=== PATIENT | male | born 1930 | race Caucasian/White ===

== ENCOUNTER 2017-05-25 17:03 | Emergency (ER) | payer OTHER ==
[~2017-05-25] VITALS: Ht 175.3 cm; Wt 70.8 kg
[2017-05-25] MEDS ORDERED: PRAVACHOL40 MG PO (17:10)
[2017-05-25] MEDS ORDERED: TOPAMAX 25 MG T25 M1 PO (17:25)
[2017-05-25] MEDS ORDERED: LISINOPRIL5 MG PO (17:25)
[2017-05-25] MEDS ORDERED: AUGMENTIN 875875 MG PO ×2 (17:26→17:49)
[2017-05-25 17:55] VITALS: BP 172/86
== END 2017-05-25 17:56 | disposition home or self-care (01) ==
LOC: ER 17:03
DX: S61.452A Open bite of left hand, initial encounter (principal); I25.2 Old myocardial infarction; Z95.0 Presence of cardiac pacemaker; F10.99 Alcohol use, unspecified with unspecified alcohol-induced disorder; W55.01XA Bitten by cat, initial encounter; Y93.89 Activity, other specified; Y92.89 Other specified places as the place of occurrence of the external cause; Y99.8 Other external cause status

== ENCOUNTER → 2017-06-16 | Outpatient (CLI) | payer OTHER ==
[~2017-06-16] MED LIST: AUGMENTIN 875875 MG PO; LISINOPRIL5 MG PO; PRAVACHOL40 MG PO; TOPAMAX 25 MG T25 M1 PO
== END ==
LOC: SLEEPLAB 14:14
DX: G47.33 Obstructive sleep apnea (adult) (pediatric) (principal)

== ENCOUNTER → 2017-10-07 | Outpatient (CLI) | payer OTHER ==
[~2017-10-07] MED LIST changes: +ASPIR 8181 M1 PO; +TOPROL XL25 MG PO; +VOLTAREN GEL 1100 G2 TOP
[2017-10-07 13:30] LABS: ALBUMIN 3.5 g/dL (3.4-5.0); CREATININE 1.3 mg/dL (0.7-1.3); MAGNESIUM 2.2 mg/dL (1.8-2.4); POTASSIUM 4.7 mmol/L (3.5-5.1); TOTAL BILIRUBIN 0.4 mg/dL (<0.1-1.0); TOTAL PROTEIN 6.8 g/dL (6.4-8.2)
== END ==
LOC: SEN 10:41
PROVIDERS: Registered Nurse
DX: Z09 Encounter for follow-up examination after completed treatment for conditions other than malignant neoplasm (principal)

== ENCOUNTER 2018-04-02 08:51 | Emergency (ER) | payer OTHER ==
[~2018-04-02] VITALS: Ht 175.3 cm; Wt 69.0 kg
[~2018-04-02 08:51] MED LIST changes: -ASPIR 8181 M1 PO; -TOPROL XL25 MG PO; -VOLTAREN GEL 1100 G2 TOP
[2018-04-02] MEDS ORDERED: TOPROL XL25 MG PO (09:00)
[2018-04-02] MEDS ORDERED: ASPIR 8181 M1 PO (09:01)
[2018-04-02] MEDS ORDERED: VOLTAREN GEL 1100 G2 TOP (10:38)
[2018-04-02 10:40] VITALS: BP 157/70
== END 2018-04-02 10:45 | disposition home or self-care (01) ==
LOC: ER 08:51
DX: S70.01XA Contusion of right hip, initial encounter (principal); I25.2 Old myocardial infarction; Z95.0 Presence of cardiac pacemaker; W19.XXXA Unspecified fall, initial encounter; Y93.89 Activity, other specified; Y92.89 Other specified places as the place of occurrence of the external cause; Y99.8 Other external cause status

== ENCOUNTER 2018-04-26 12:17 | Emergency (ER) | payer OTHER ==
[~2018-04-26] VITALS: Ht 175.3 cm; Wt 70.8 kg
[~2018-04-26 12:17] MED LIST changes: +ASPIR 8181 M1 PO; +TOPROL XL25 MG PO; +VOLTAREN GEL 1100 G2 TOP
[2018-04-26 14:06] VITALS: BP 160/75
== END 2018-04-26 14:07 | disposition home or self-care (01) ==
LOC: ER 12:17
DX: S00.83XA Contusion of other part of head, initial encounter (principal); M25.512 Pain in left shoulder; M54.2 Cervicalgia; Z95.0 Presence of cardiac pacemaker; Z95.5 Presence of coronary angioplasty implant and graft; W18.39XA Other fall on same level, initial encounter; Y93.89 Activity, other specified; Y92.89 Other specified places as the place of occurrence of the external cause; Y99.8 Other external cause status

== ENCOUNTER 2019-11-10 19:07 | Emergency (ER) | payer OTHER ==
[~2019-11-10] VITALS: Ht 175.3 cm; Wt 79.4 kg
--- NOTE | ~2019-11-10 | EKG ---
[facility] [place] [address] ELECTROCARDIOGRAM REPORT Name: MONROE ROSE Room #: PRE M.R.#: [id number] Admission: Attend Phys: Discharge: Date of : 31 Report #: [id number] THIS REPORT FOR: cc: Wolf Sanabria Kevin E. DO Epiphany, Epiphany MD ~ THIS REPORT FOR: //name// [facility] ED Test Date: 2019-11-10 Test Time: 19:12:15 Pat Name: MONROE ROSE Department: Room: Gender: M Faculty Head: yolette : 1930 Requested By: Barber Barboza Order Number: [id number] MD: Measurements Intervals Thornton Rate: 95 P: -29 WV: 54 QRS: 20 QRSD: 90 T: 37 QT: 356 QTc: 448 Interpretive Statements Sinus rhythm Short WV interval No previous ECG available for comparison [email or web address] By: 11 11 Lou Blake MD /EPI
[2019-11-10 19:33] LABS: ABSOLUTE NEUTROPHILS 11.2 thou/uL (1.4-8.2); BASOPHILS 0.1 % (0.0-2.0); EOSINOPHILS 0.4 % (0.0-3.0); HEMATOCRIT 44.3 % (42.0-52.0); HEMOGLOBIN 14.5 gm/dL (14.0-18.0); LYMPHOCYTES 2.9 % (24.0-44.0); MCH 30.8 pg (26.0-34.0); MCHC 32.7 g/dL (28.0-37.0); MCV 94.2 fL (80.0-100.0); MONOCYTES 7.6 % (1.0-8.0); PLATELET COUNT 170 thou/uL (150-400); RBC 4.71 mil/uL (4.50-6.00); RDW 13.3 % (10.5-14.5); WBC 12.6 thou/uL (4.0-11.0)
[2019-11-10 19:50] LABS: ANION GAP 14 mmol/L (7-16); BUN 19 mg/dL (7-18); CALCIUM 8.4 mg/dL (8.5-10.1); CHLORIDE 98 mmol/L (98-107); CO2 22 mmol/L (21-32); CREATININE 1.3 mg/dL (0.7-1.3); GLUCOSE 182 mg/dL (74-106); POTASSIUM 3.7 mmol/L (3.5-5.1); SODIUM 134 mmol/L (136-145)
[2019-11-10 20:06] LABS: ALBUMIN 3.5 g/dL (3.4-5.0); MAGNESIUM 1.6 mg/dL (1.8-2.4); SGOT 21 U/L (15-37); SGPT 27 U/L (30-65); TOTAL BILIRUBIN 1.9 mg/dL (<0.1-1.0); TOTAL PROTEIN 7.4 g/dL (6.4-8.2); TROPONIN-I <0.06 ng/mL (<0.06)
[2019-11-10] MEDS ORDERED: MAG-OXIDE400 MG PO (20:41)
[2019-11-10 22:23] LABS: URINE BILIRUBIN 1+ (Negative); URINE BLOOD 2+ (Negative); URINE CLARITY CLEAR; URINE COLOR YELLOW; URINE GLUCOSE-RANDOM* NEGATIVE (Negative); URINE KETONES 3+ (Negative); URINE NITRITE-REFLEX NEGATIVE (Negative); URINE PROTEIN (DIPSTICK) 1+ (Negative); URINE SPECIFIC GRAVITY >= 1.030 (1.005-1.035)
[2019-11-10 22:30] LABS: ICTOTEST (BILI CONFIRMATORY) Positive (Negative); URINE LEUKOCYTES-REFLEX 1+ (Negative)
[2019-11-10 22:41] LABS: SQUAMOUS 0-3 Few /LPF (0-3)
[2019-11-10 22:42] LABS: CASTS None Seen /LPF (None Seen); MUCUS 0-3 Light strn/LPF (None Seen)
[2019-11-10 22:43] LABS: BACTERIA-REFLEX 1-9 Few /HPF (None Seen); CRYSTALS None Seen /LPF (None Seen); URINE RBC 3-10 Few /HPF (0-2); URINE WBC-REFLEX >25 Many /HPF (0-5)
[2019-11-10] MEDS ORDERED: KEFLEX500 M1 PO (23:01)
[2019-11-11 00:08] VITALS: BP 157/71
== END 2019-11-11 00:10 | disposition home or self-care (01) ==
LOC: ER 19:07
PROVIDERS: Emergency Medicine
DX: N39.0 Urinary tract infection, site not specified (principal); E86.0 Dehydration; E83.42 Hypomagnesemia; R19.7 Diarrhea, unspecified; R74.8 Abnormal levels of other serum enzymes; R73.9 Hyperglycemia, unspecified; Z95.5 Presence of coronary angioplasty implant and graft; Z95.0 Presence of cardiac pacemaker

== ENCOUNTER 2020-07-19 19:31 | Inpatient (IN) | payer OTHER ==
[~2020-07-19] VITALS: Ht 177.8 cm; Wt 78.2 kg
--- NOTE | ~2020-07-19 | HC ---
[facility] [address] [address] CONSULTATION Name: MONROE ROSE Room #: 217-[facility] IN M.R.#: [id number] Admission: 07/19/20 Attend Phys: Savannah Pinto MD Discharge: Date of : 31 Report #: [id number] THIS REPORT FOR: cc: [facility] - Clinic physician unknown [facility] - Clinic physician unknown Rc De MD ~ DATE OF SERVICE: 07/21/2020 HISTORY OF PRESENT ILLNESS: The patient is an 89-year-old white male who was admitted with mental status changes, word finding difficulty. He was noted to have a right facial droop. He was diagnosed with a TIA. He was seen by Neurology and had an MRI that was ordered. This has since been cancelled. We are seeing him in rehabilitation medicine consultation. PAST MEDICAL HISTORY: His prior medical history includes hypertension, hyperlipidemia, WI, coronary artery disease with stenting, obstructive sleep apnea, urinary tract infection. MEDICATIONS: Please see the full medication listing. ALLERGIES: No known drug allergies. HABITS: A 29-thub-vaot history. Same day smoker. SOCIAL HISTORY: Noted to be independent with mobility was driving, lives with his daughter in a house, 12 steps in. REVIEW OF SYSTEMS: No current complaints of chest pain, shortness of breath or abdominal discomfort. PHYSICAL EXAMINATION: GENERAL: An 89-year-old white male in no obvious distress. VITAL SIGNS: Last recorded temperature 97, pulse 70, respirations 18, blood pressure 119/60. NEUROLOGIC: He is alert. He was unable to tell me the name of the hospital. He could follow basic 1-step commands, was pleasant, appeared to have some difficulty with word finding. He has a depressed right nasolabial fold with a slight right facial droop. EOMs appeared to be full. No obvious visual field neglect to confrontation. EXTREMITIES: Functional range of motion of both upper and lower extremities. Strength is a grade 4 to 4+/5. DTRs are trace to 1. He is standby assistance sit to stand and is ambulating functional distances. He went up to 12 steps in physical therapy with standby assistance. Physical therapy has actually discharged him. ASSESSMENT: An 89-year-old white male with the following problem list: [address] [address] CONSULTATION Name: MONROE ROSE Room #: 217-P [facility] IN .R.#: [id number] Admission: 07/19/20 Attend Phys: Savannah Pinto MD Discharge: Date of : 31 Report #: [id number] 1. Transient ischemic attack versus stroke. 2. Hypertension. 3. Hyperlipidemia. 4. Obstructive sleep apnea. 5. Coronary artery disease. PLAN: Agree with speech therapy involvement regarding cognitive evaluation. He ambulates quite well and physical therapy has actually discharged him. I do not see that he would have the functional deficits to warrant an acute in-hospital inpatient rehabilitation stay. Note that workup is continuing with some increased assistance depending upon him. Thank you for asking us to assist in this patient's care. By: 1040 0024 Rc De MD /KATHYA
[~2020-07-19 19:31] MED LIST changes: +KEFLEX500 M1 PO; +MAG-OXIDE400 MG PO
[2020-07-19 19:45] VITALS: BP 180/72
[2020-07-19 20:16] LABS: HEMATOCRIT 41.2 % (42.0-52.0); HEMOGLOBIN 14.1 gm/dL (14.0-18.0); MCH 31.6 pg (26.0-34.0); MCHC 34.3 g/dL (28.0-37.0); MCV 92.1 fL (80.0-100.0); PLATELET COUNT 188 thou/uL (150-400); RBC 4.47 mil/uL (4.50-6.00); RDW 13.2 % (10.5-14.5); WBC 4.3 thou/uL (4.0-11.0)
[2020-07-19 20:24] LABS: ANION GAP 7 mmol/L (7-16); BUN 19 mg/dL (7-18); CALCIUM 8.5 mg/dL (8.5-10.1); CHLORIDE 108 mmol/L (98-107); CO2 29 mmol/L (21-32); CREATININE 1.1 mg/dL (0.7-1.3); GLUCOSE 122 mg/dL (74-106); POTASSIUM 4.1 mmol/L (3.5-5.1); SODIUM 144 mmol/L (136-145)
[2020-07-19 20:29] LABS: APTT 27.8 Seconds (24.5-32.8); INR 1.1
[2020-07-19 20:34] LABS: ALBUMIN 3.6 g/dL (3.4-5.0); SGOT 12 U/L (15-37); SGPT 16 U/L (30-65); TOTAL BILIRUBIN 0.4 mg/dL (0.2-1.0); TROPONIN-I <0.06 ng/mL (<0.06)
[2020-07-19 20:37] LABS: URINE BILIRUBIN NEGATIVE (Negative); URINE BLOOD NEGATIVE (Negative); URINE CLARITY CLEAR; URINE COLOR YELLOW; URINE GLUCOSE-RANDOM* NEGATIVE (Negative); URINE KETONES NEGATIVE (Negative); URINE LEUKOCYTES-REFLEX NEGATIVE (Negative); URINE NITRITE-REFLEX NEGATIVE (Negative); URINE PROTEIN (DIPSTICK) NEGATIVE (Negative); URINE SPECIFIC GRAVITY 1.025 (1.005-1.035); URINE UROBILINOGEN 0.2 E.U./dl (0.2-1.0)
[2020-07-19 20:44] LABS: ABSOLUTE NEUTROPHILS 2.9 thou/uL (1.4-8.2)
[2020-07-19 21:46] LABS: CHOLESTEROL 167 mg/dL (<200); HDL CHOLESTEROL 31 mg/dL (>40); LDL CHOLESTEROL 99 mg/dL (<100); TC:HDL 5.4 Ratio (Not establshd); TRIGLYCERIDE 186 mg/dL (<150); VLDL 37 mg/dL (<40)
[2020-07-19 21:53] LABS: SERUM ASSESSMENT Clear
[2020-07-19 22:12] VITALS: BP 159/91
[2020-07-19 23:16] VITALS: BP 159/91
[2020-07-19 23:48] VITALS: BP 185/88
[2020-07-20] VITALS: BP 153/69
[2020-07-20 04:36] LABS: HEMATOCRIT 40.9 % (42.0-52.0); HEMOGLOBIN 13.9 gm/dL (14.0-18.0); MCH 31.6 pg (26.0-34.0); MCHC 33.9 g/dL (28.0-37.0); RBC 4.39 mil/uL (4.50-6.00); RDW 13.5 % (10.5-14.5); WBC 5.1 thou/uL (4.0-11.0)
[2020-07-20 04:51] LABS: CALCIUM 8.6 mg/dL (8.5-10.1); CREATININE 0.9 mg/dL (0.7-1.3); MAGNESIUM 1.8 mg/dL (1.8-2.4); POTASSIUM 3.5 mmol/L (3.5-5.1)
[2020-07-20 05:00] VITALS: BP 150/73
--- NOTE | 2020-07-20 07:26 | NUR ---
admit pt alert and oriented to self, place and situation knows he's here because he woke up from a nap with weakness and trouble speaking. Does have some periods of confusion pulled his saline lock out replaced in left hand wrapped with kerlix right facial droop and slurred speech resolving, up with sba voiding qs, Aneesh RN performed nih scale per supervisors direction and is waiting on swallow eval denies pain skin, c/d/i some brusing noted. continue to monitor
[2020-07-20 08:35] VITALS: BP 166/64
[2020-07-20 12:45] VITALS: BP 138/66
--- NOTE | 2020-07-20 15:57 | NUR ---
ASSESSMENT CHARTED. PT ALERT AND ORIENTED. VSS. DENIED HAVING PAIN OR DISCOMFORT. NIH SCORE A ZERO. NEW ORDERS NOTED. NO CONCERNS AT THIS TIME.
[2020-07-20 16:20] VITALS: BP 131/50
[2020-07-20 20:48] VITALS: BP 156/57
[2020-07-21] VITALS (7 sets, daily range): BP systolic 98–146; BP diastolic 54–77
--- NOTE | 2020-07-21 01:40 | NUR ---
pt keeps setting bed alarm off and trying to get out of bed, needed frequent reorientation, vss, no c/o pain, NIH AT 3,con't L facial droop, aphasia, plan ST, PT, OT, EVAL AND TX AND MRI/MRA, US OF CAROTIDS AND ECHO SCHEDULED FOR AM, will con't to monitor per ppoc.
[2020-07-21 03:05] LABS: GLYCOHEMOGLOBIN (HGB A1C) 6.1 % (4.8-5.6)
--- NOTE | 2020-07-21 07:41 | EKG ---
[facility] [place] [address] ELECTROCARDIOGRAM REPORT Name: MONROE ROSE Room #: 217-P ADM IN M.R.#: [id number] Admission: 07/19/20 Attend Phys: Savannah Pinto MD Discharge: Date of : 31 Report #: [id number] THIS REPORT FOR: cc: [facility] - Clinic physician unknown [facility] - Clinic physician unknown Louie Gibbs MD [facility] ~ THIS REPORT FOR: //name// [facility] ED Test Date: 2020-07-19 Test Time: 20:12:44 Pat Name: MONROE ROSE Department: Room: [facility] Gender: M Icu Tech[facility] : 1930 Requested By: Munir Jameson Order Number: [id number] MD: Louie Gibbs Measurements Intervals Republic Rate: 60 P: 33 CO: 252 QRS: 35 QRSD: 100 T: 37 QT: 437 QTc: 437 Interpretive Statements Sinus rhythm Prolonged CO interval RSR' in V1 or V2, right VCD Compared to ECG 11/10/2019 19:12:15 No significant change was found Electronically Signed On 07-21-2020 7:40:54 CDT by Louie Gibbs [email or web address] <ELECTRONICALLY SIGNED> By: Louie Gibbs MD, FACC 07/21/20 0740 11 11 Louie Gibbs MD, [facility] /EPI
--- NOTE | 2020-07-21 19:44 | NUR ---
ASSUMED CARE AT SHIFT CHANGE, STORMLEY CONFUSED, VSS AND POSITIVE FOR ORTHOSTATIC BP. NIH SCORE 1-3. DENIES ANY DISCOMFORT AND WILL CONTINUE WITH POC.
[2020-07-22 04:45] VITALS: BP 1164/72
--- NOTE | 2020-07-22 05:11 | NUR ---
ASSESSMENTS CHARTED, MEDS CHARTED GIVEN. PATIENT STILL HAS PARTIAL APHASIA, OTHERWISE EFFECTS OF TIA HAVE RESOLVED. PATIENT UP TO BATHROOM WITH ASSIST X 1. DENIES PAIN. FALL PRECAUTIONS IN PLACE DURING SHIFT.
[2020-07-22 08:15] VITALS: BP 148/84
--- NOTE | 2020-07-22 10:09 | 2DMMODE ---
[facility] [place] [address] 2 D/M-MODE ECHOCARDIOGRAM Name: MONROE ROSE Room #: 217-P ADM IN M.R.#: [id number] Admission: 07/19/20 Attend Phys: Savannah Pinto MD Discharge: Date of : 31 Report #: [id number] THIS REPORT FOR: cc: [facility] - Clinic physician unknown [facility] - Clinic physician unknown Louie Gibbs MD [facility] ~ APPROVED REPORT Study performed: 07/22/2020 09:26:50 EXAM: Comprehensive 2D, Doppler, and color-flow Echocardiogram Patient Location: Bedside Room #: 217 Status: routine BSA: 1.96 HR: 64 bpm BP: 137/74 mmHg Rhythm: NSR Indications CVA. Hx: Pacer/defib, VT, stent. 2D Dimensions RVDd: 34.34 mm IVSd: 12.00 (7-11mm) LVOT Diam: 20.75 (18-24mm) LVDd: 36.74 mm PWd: 12.12 (7-11mm) Ascending Ao: 36.29 (22-36mm) LVDs: 26.42 (25-40mm) Aortic Root: 37.62 mm Volumes Left Atrial Volume (Systole) Single Plane 4CH: 47.18 mL Single Plane 2CH: 42.58 mL LA ESV Index: 24.00 mL/m2 Aortic Valve AoV Peak Tanner.: 1.28 m/s AO Peak Gr.: 6.56 mmHg LVOT Max P.69 mmHg LVOT Max V: 0.82 m/s MATTHEW Vmax: 2.16 cm2 Mitral Valve E/A Ratio: 0.7 [facility] [place] [address] 2 D/M-MODE ECHOCARDIOGRAM Name: MONROE ROSE Room #: 217-P [facility] IN .R.#: [id number] Admission: 07/19/20 Attend Phys: Savannah Pinto, Discharge: Date of : 31 Report #: [id number] MV Decel. Time: 208.63 ms MV E Max Tanner.: 0.65 m/s MV A Tanner.: 0.90 m/s MV PHT: 60.50 ms IVRT: 110.73 ms Pulmonary Valve PV Peak Tanner.: 1.00 m/s PV Peak Gr.: 3.99 mmHg Pulmonary Vein P Vein S: 0.46 m/s P Vein A: 0.27 m/s P Vein D: 0.38 m/s P Vein A Dur.: 124.6 msec P Vein S/D Ratio: 1.21 Tricuspid Valve TR Peak Tanner.: 2.62 m/s RAP Estimate: 5.00 mmHg TR Peak Gr.: 28.00 mmHg PA Pressure: 33.00 mmHg Left Ventricle The left ventricle is normal size. There is normal LV segmental wall motion. There is normal left ventricular wall thickness. Left ventricular systolic function is normal. LVEF is 55-60%. Mild diastolic dysfunction is present (impaired relaxation pattern). Right Ventricle The right ventricle is normal size. The right ventricular systolic function is normal. Device lead is present in the right ventricle. Atria The left atrium size is normal. The right atrium size is normal. Aortic Valve The aortic valve is mildly sclerotic. No aortic regurgitation is present. There is no aortic valvular stenosis. Mitral Valve The mitral valve is normal in structure. Mild mitral regurgitation. Tricuspid Valve The tricuspid valve is normal in structure. Mild to moderate tricuspid regurgitation. Estimated PAP 35mmHg. [facility] [address] [address] 2 D/M-MODE ECHOCARDIOGRAM Name: MONROE ROSE Room #: 217-P [facility] IN .R.#: [id number] Admission: 07/19/20 Attend Phys: Savannah Pinto, Discharge: Date of : 31 Report #: [id number] Pulmonic Valve The pulmonary valve is normal in structure. Great Vessels Aortic root is borderline dilated. The ascending aorta is normal in size. IVC is normal in size and collapses >50% with inspiration. Pericardium There is no pericardial effusion. <Conclusion> Left ventricular systolic function is normal. There is normal LV segmental wall motion. LVEF is 55-60%. Mild diastolic dysfunction Device lead is present in the right ventricle. The aortic valve is mildly sclerotic. No aortic regurgitation or stenosis. The mitral valve is normal in structure. Mild mitral regurgitation. Mild to moderate tricuspid regurgitation. Estimated pulmonary artery pressure of 35mmHg. There is no pericardial effusion. <ELECTRONICALLY SIGNED> By: Louie Gibbs MD, FACC 07/22/201008 08 08 Louie Gibbs MD, FACC /INF
[2020-07-22 12:06] VITALS: BP 187/60
[2020-07-22 12:07] VITALS: BP 182/67
[2020-07-22 16:00] VITALS: BP 151/73
--- NOTE | 2020-07-22 16:31 | NUR ---
FAXED REFERRAL TO [facility] RECEIVED CONFIRMATION AND LEFT MSG WITH GENOVEVA IN ADM. WILL F/U IN THE AM.
--- NOTE | 2020-07-22 16:59 | NUR ---
Met with patient and dtr in room. They reside togther in independent home. Patient admits with CVA. Evaled by 5N who reports too high level for acute care. Dtr reports interest in referral to [facility] [place]. Discussed they do not accept [facility] medicare. She was upset and reports patient has traditional medicare. She gave card and made copies. Alerted UR. copy placed in chart and faxed to registration. She reports [facility] is suplimental plan. 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 Drove to [email or web address], grocery store, errands. Managed own medications, bathing. she reports he can ambulate independnently, but so confused. She reports he wanted his keys to leave last eveing. Referral to [facility] with copy of medicare card.
--- NOTE | 2020-07-22 17:21 | NUR ---
ASSUMED CARE AT SHIFT CHANGE, ALERT TO SELF AND PLACE ONLY. ASSESSMENT CHARTED, APHASIA STILL PRESENT. NO MRI OR MRA WILL BE DONE BECAUSE OF PACEMAKER COMPATABILTY TOLD BY WEIGHT REDUCTION SPECIALIST. NO REPORT OF THE CAROTID US IS AVAILABLE BECAUSE COMPUTER UPGRADING,AND THERE IS A PRELIMINARY REPORT IN THE PATIENT CHART SINCE TUESDAY FOR CAROTID US. PATIENT PROGRESSING TOWARDS HIS GOALS AND WILL CONTINUE TO MONITOR.
[2020-07-22 19:48] VITALS: BP 155/69
--- NOTE | 2020-07-23 02:47 | NUR ---
ASSUMED CARE OF PATIENT AT 1900. PATIENT CONTINUES TO BE HIGH FALL RISK HE IS IMPULSIVE AND DOES NOT USE CALL LIGHT TO CALL FOR HELP. PATIENT ALSO HAS TO BE REMINDED FREQUENTLY TO LEAVE IMMUNOLOGY TEACHER ON. NO CHANGES TO NIH SCALE.
[2020-07-23 04:06] VITALS: BP 165/69
[2020-07-23 07:45] VITALS: BP 149/79
--- NOTE | 2020-07-23 14:03 | NUR ---
Referral yesterday to [facility]. They report [facility] medicare is primary. Appears with patient having a replacment policy. Taina in admissions at [facility] discussed with dtr. Yomi sp with dtr. She wants to pursue skilled with out of pocket benefits. She reports she is calling [facility] as this was changed without permission. She reports its an [employer] plan and they switched. She plans to come to hospital later today.
[2020-07-23 15:23] LABS: HEMATOCRIT 46.5 % (42.0-52.0); HEMOGLOBIN 15.9 gm/dL (14.0-18.0); MCH 31.7 pg (26.0-34.0); MCHC 34.2 g/dL (28.0-37.0); MCV 92.7 fL (80.0-100.0); RBC 5.02 mil/uL (4.50-6.00); RDW 13.4 % (10.5-14.5); WBC 5.8 thou/uL (4.0-11.0)
[2020-07-23 15:41] LABS: ALBUMIN 3.8 g/dL (3.4-5.0); CALCIUM 9.2 mg/dL (8.5-10.1); CREATININE 1.1 mg/dL (0.7-1.3); POTASSIUM 4.6 mmol/L (3.5-5.1); TOTAL BILIRUBIN 0.6 mg/dL (0.2-1.0); TOTAL PROTEIN 7.6 g/dL (6.4-8.2)
--- NOTE | 2020-07-23 15:43 | NUR ---
Dtr attempted to cancel policy and return to medicare. [facility] plan bought for patient for lifetime from [employer]. Dtr reports she plans to call Taina at [facility] to alert of change. This casemgr also notified Taina. Dtr interested in [facility], and [facility]. [facility] closed to admissions. Dtr also interested in [facility]. [facility] may have a bed avail for ltc as well as [facility]. DC urban planner to send referral to [facility].
--- NOTE | 2020-07-23 16:11 | NUR ---
FAXED REFERRAL TO [facility] SPOKE WITH JUANCHO IN ADM SHE RECEIVED REFERRAL AND WILL REVIEW. DP TO FOLLOW.
[2020-07-23 16:44] VITALS: BP 124/57
--- NOTE | 2020-07-23 19:32 | NUR ---
ASSUMED CARE AT CHANGE OF SHIFT. ALERT, IMPULSIVE TO USE THE BATHROOM. COMPLIANT WITH CARES. STAND BY ASSIST. IV INFILTRATED C BOLOS. IV TEAM CALLED C NEW IV PLACED. NIGHT RN AWARE OF NEED TO BOLUS PT. PT HAS POSTIONAL ORTHOSTATICIS. DENIES PAIN, DENIES SOB. CALL LIGHT AND PERSONAL ITEMS IN REACH. FALL PRECAUTIONS IN PLACE.
[2020-07-23 19:33] VITALS: BP 130/72
[2020-07-24 03:40] VITALS: BP 116/65
[2020-07-24 08:08] VITALS: BP 153/67
--- NOTE | 2020-07-24 14:31 | HC ---
[facility] [place] [address] CONSULTATION Name: MONROE ROSE Room #: 217- ADM IN M.R.#: [id number] Admission: 07/19/20 Attend Phys: Savannah Pinto MD Discharge: Date of : 31 Report #: [id number] THIS REPORT FOR: cc: [facility] - Clinic physician unknown [facility] - Clinic physician unknown Tha Hall MD ~ DATE OF SERVICE: 07/23/2020 We were asked by Dr. Brito to see the patient. HISTORY OF PRESENT ILLNESS: The patient is an 89-year-old admitted on 07/19/2020. The patient presented to the Emergency Department with a chief complaint provided by the daughter that she noticed that the patient was not able to form sentences and speak properly. The patient was able to form words, but they were inappropriate for the context of the conversation. This information is from the ER notes. As I interviewed the patient this morning, all he wants to do is sleep and is not communicative. The patient states he sleeps most of the time and currently and in fact, this included in one of the complaints in the Emergency Department. The patient was also seen to have a lower right-sided facial droop and the daughter also reported right leg weakness in the patient. PAST MEDICAL HISTORY: Significant for pacemaker defibrillator, cardiac stents, myocardial infarct, urinary tract infection. MEDICATIONS AT HOME: Includes pravastatin, metoprolol, aspirin. ALLERGIES: None known. SOCIAL HISTORY: Nonsmoker. REVIEW OF SYSTEMS: I have no issue with the review of systems in the chart, but cannot obtain one due to altered mental status currently. PHYSICAL EXAMINATION: GENERAL: The patient is lying in bed, responds to verbal and physical stimuli, but reverts back to a sleeping posture. VITAL SIGNS: This morning, temperature 36.3, heart rate 67, respiratory rate 15, blood pressure 149/79. HEENT: I see no scleral icterus. Pupils are round, equal. NECK: No mass. I hear no bruit. CHEST: Decreased breath sounds, clear overall. HEART: Rhythm regular, no murmur. ABDOMEN: Soft. EXTREMITIES: No clubbing, cyanosis or edema. NEUROLOGIC: No obvious motor or sensory deficit, but I cannot get the patient [facility] [address] [place] [address] CONSULTATION Name: MONROE ROSE Room #: 217-P [facility] IN .R.#: [id number] Admission: 07/19/20 Attend Phys: Savannah Pinto MD Discharge: Date of : 31 Report #: [id number] awake enough to follow detailed commands. PSYCHIATRIC: According to the nursing staff, the patient is oriented to person, but does not know where he is. LABORATORY DATA: We note that a carotid duplex evaluation shows a high-grade left internal carotid stenosis. No obvious laboratory data to explain toxic metabolic delirium. ASSESSMENT: The patient was admitted with altered mental status, who appears to have a high-grade carotid lesion. I am certainly open to surgical treatment of this, but if the patient shows more signs of cognition and alertness, we will return to see the patient at intervals to see if we just caught him at bad time of day and I will review the case with Dr. Brito. Thank you for the consult. <ELECTRONICALLY SIGNED> By: Tha Hall MD 07/24/20 1431 [id number] [id number] Tha Hall MD /nt
--- NOTE | 2020-07-24 16:20 | NUR ---
Spoke with dtr of patient to alert of planned dc tomorrow to [facility]. DIscussed transport and timeframe. Casemgt to finalize plans in am.
[2020-07-24 16:42] VITALS: BP 169/69
--- NOTE | 2020-07-24 18:56 | NUR ---
ASSUMED CARE PT SHIFT CHANGE. ASSESSMENT CHARTED.MEDS GIVEN PER DEC. PT ALERT, ORIENTED TO PERSON. CONFUSED. PT UP X1 ASSIST TOLERATING WELL. PT KEPT NPO THIS AM FOR CTA. REFER TO RESULTS. SEEN BY NEURO/CTS THIS SHIFT REFER TO PHYSICIAN NOTES FOR POC. DAUGHTER VISITED WITH PT, UPDATED ON POC. PT TO BE DC'D TO [facility] TOMORROW. CONT TO MONITOR PT/FOLLOW POC. WILL PASS ON REPORT TO LAURA PEREZ.
[2020-07-24 20:15] VITALS: BP 128/75
--- NOTE | 2020-07-25 02:14 | NUR ---
ASSUMED CARE OF PATIENT AT 1900. PATIENT ALERT TO SELF. UNABLE TO STATE MONTH, DAY, OR PLACE. PATIENT IMPLUSIVE AND DOES NOT CALL FOR ASSISTANCE. BED ALARM ON WITH FREQUENT ROUNDING. PATIENT APPEARED TO SLEEP MAJORITY OF NOC SHIFT. WILL CONTINUE TO MONITOR.
[2020-07-25 04:45] VITALS: BP 104/51
[2020-07-25 08:40] VITALS: BP 131/78
[2020-07-25 09:04] VITALS: BP 131/78
--- NOTE | 2020-07-25 09:07 | NUR ---
ASSUMED CARE OF PT AT SHIFT CHANGE, REPORTS OF IMPULSIVITY WHICH HE DOES DEMONSTRATE THIS A.M., AMB STEADY WITHOUT ASSIST, YET STRONGLY ENCOURAGED TO MERELY HIT THE RED BUTTON FOR ANY NEEDS, WILL TRY TO WALK HIM THIS SHIFT. ALERT TO SELF AND SITUATION INTERMITTENTLY. GIVE CONSTANT PRAISE FOR STAYING SITTING AND NOT GETTING UP WITHOUT HELP. WANTED COFFEE THIS A.M. WILL CONTINUE TO MONITOR, SEE SEPARATE INTERVENTIONS FOR ASSESSMENTS, ROOM AIR
[2020-07-25] MEDS ORDERED: CLOPIDOGREL75 MG PO (10:42)
--- NOTE | 2020-07-25 14:36 | NUR ---
Pt dc'd to snf today at [facility] via their w/c van. Dtr notified per the dc load planner. 124c and covid test results sent with the chart copy and dc orders. Pt to be skilled for therapies. Nursing called report.
--- NOTE | 2020-07-30 12:03 | EEG ---
[facility] [place] [address] ELECTROENCEPHALOGRAM Name: MONROE ROSE Room #: 217-P [facility] IN M.R.#: [id number] Admission: 07/19/20 Attend Phys: Savannah Pinto MD Discharge: 07/25/20 Date of : 31 Report #: [id number] THIS REPORT FOR: //name// CC: FAM unknown Savannah Pinto DATE OF SERVICE: 07/24/2020 This patient is being evaluated for altered mental status. EEG was done by placing the electrode by standard 10-20 system of electrode placement. Both referential and sequential montages were used for recording. Background activity in this patient's EEG is about 7-8 Hz and 30 microvolt. This is a symmetrical activity. This patient went to sleep that is associated with bilateral slowing and vertex sharp waves. Throughout the record, no active epileptiform activity was noted. IMPRESSION: This patient's EEG is abnormal because it is disorganized and poorly formed. That is a nonspecific abnormality, which can occur with encephalopathy, effect of psychotropic medication, dementia, etc. Clinical correlation is recommended. Thank you very much for this referral. <ELECTRONICALLY SIGNED> By: Glenn Brito MD 07/30/20 1203 1038 1474 Glenn Brito MD /nt
== END 2020-07-25 14:03 | DRG 64 ==
LOC: ER 19:31 → 2N 21:09 → EROBS 21:09 → 2N 23:34
PROVIDERS: Emergency Medicine; Nurse Practitioner Family; Psychiatry & Neurology Neuromuscular Medicine; ADMIT Internal Medicine; ATTEND Internal Medicine
DX: I63.233 Cerebral infarction due to unspecified occlusion or stenosis of bilateral carotid arteries (principal); G93.41 Metabolic encephalopathy; I25.10 Atherosclerotic heart disease of native coronary artery without angina pectoris; I10 Essential (primary) hypertension; G47.33 Obstructive sleep apnea (adult) (pediatric); E78.5 Hyperlipidemia, unspecified; F17.200 Nicotine dependence, unspecified, uncomplicated; N40.0 Benign prostatic hyperplasia without lower urinary tract symptoms; M62.84 Sarcopenia; E53.8 Deficiency of other specified B group vitamins; G47.00 Insomnia, unspecified; I25.2 Old myocardial infarction; Z95.5 Presence of coronary angioplasty implant and graft; Z95.0 Presence of cardiac pacemaker; Z79.899 Other long term (current) drug therapy; Z20.828 Contact with and (suspected) exposure to other viral communicable diseases
CPT/HCPCS: 10081